=== PATIENT | male | born 1985 | race Caucasian/White ===

== ENCOUNTER 2018-08-06 14:12 | Emergency (ER) | payer BC ==
[2018-08-06 14:34] VITALS: BP 150/91
--- NOTE | 2018-08-06 14:34 | ED Physician Documentation ---
General Adult - HISTORIAN Historian: patient - HPI Stated Complaint: sinus pain and pressure x 3 weeks Chief Complaint: Allergies Onset: other (3weeks ) Timing: still present Severity: mild Further Comments: yes (He reports sinus pain for over 3 weeks. he has tried "all the things at the store and nothing is helping" today his sinus pressure is increased and he has bilateral ear pain. no nausea. Children at home with illness as well.) - ROS CONST: no problems - PAST HX Past History: none Immunizations: UTD Allergies/Adverse Reactions: Allergies Allergy/AdvReac Type Severity Reaction Status Date / Time No Known Drug Allergies Allergy Verified 08/06/18 14:27 - SOCIAL HX Smoking History: cigarettes Alcohol Use: none Drug Use: none - FAMILY HX Family History: No - REVIEWED ASSESSMENTS Nursing Assessment Reviewed: Yes Vitals Reviewed: Yes General Adult Physical Exam - PHYSICAL EXAM GENERAL APPEARANCE: no distress EENT: eye inspection normal, no signs of dehydration, pharyngeal erythema, abnormal TM (bilteral ), TM erythema (bilateral ), other (sinus pain and pressure frontal bilateral ) NECK: normal inspection RESPIRATORY: no resp distress, chest non-tender, breath sounds normal CVS: reg rate & rhythm, heart sounds normal ABDOMEN: soft, no distension BACK: normal inspection SKIN: warm/dry, normal color EXTREMITIES: non-tender NEURO: oriented X3 Discharge Clincal Impression: Sinusitis Qualifiers: Sinusitis location: frontal Chronicity: acute Recurrence: non-recurrent Qualified Code(s): J01.10 - Acute frontal sinusitis, unspecified Referrals: Primary Doctor,No [Primary Care Provider] - 2 Days Comments: 1. Augmentin 875/125 take 1 by mouth twice daily x 10 days 2. continue OTC meds for symptom control 3. Increase fluids 4. Warm salt water gargles 5. Tessalon Pearls take 1 by mouth every 12 hours as needed for cough 6. See PCP in 2-4 days if no improvement 7. Return to ER for any concerns Condition: Stable Disposition: 01 HOME, SELF-CARE Decision to Admit: NO Date of Decison to Admit: 08/06/18 Decision Time: 14:44
== END 2018-08-06 14:49 | disposition home or self-care (01) ==
LOC: ED 14:12
DX: J01.10 Acute frontal sinusitis, unspecified (principal); Z72.0 Tobacco use
CPT/HCPCS: 99282